=== PATIENT | female | born 1985 | race African-American/Black ===

== ENCOUNTER 2020-11-11 11:49 | Emergency (ER) | payer OTHER ==
[~2020-11-11] VITALS: Ht 165.1 cm; Wt 99.8 kg
[2020-11-11] MEDS ORDERED: PREDNISONE 20 M20 MG PO (15:50)
[2020-11-11] MEDS ORDERED: TESSALON PERLE100 MG PO (15:50)
[2020-11-11] MEDS ORDERED: PROAIR HFA8.5 GM INH (15:50)
[2020-11-11 16:00] VITALS: BP 133/72
== END 2020-11-11 16:01 | disposition home or self-care (01) ==
LOC: M.ERS 11:49
DX: U07.1 COVID-19 (principal); J40 Bronchitis, not specified as acute or chronic; Z91.040 Latex allergy status; Z90.710 Acquired absence of both cervix and uterus